=== PATIENT | female | born 1995 | race Caucasian/White ===

== ENCOUNTER → 2023-02-03 | Outpatient (CLI) | payer SELFPAY ==
[~2023-02-03] VITALS: Ht 160 cm; Wt 81.8 kg
[~2023-02-03] MED LIST: LIDOCAINE 1% INJ 10 ML VIAL INJ ONE; LIDOCAINE 1% INJ 10 ML VIAL INJ STA
--- NOTE | 2023-02-04 07:45 | Diagnostic Imaging Report ---
INDICATION: Enlarged right axillary lymph node. Patient presents for ultrasound-guided biopsy. Patient brought to the sonographic suite placed on table in the supine position. Ultrasound imaging of the right axilla was performed to evaluate appropriate entry site. The right axilla was then prepped and draped in usual sterile fashion. Small amount of 1% lidocaine was utilized for local anesthesia. A total of 4 core biopsies were obtained of enlarged lymph node in the right axilla utilizing the 14-gauge Achieve needle. A marker clip was then deployed. Hemostasis was obtained using manual compression. Patient tolerated the procedure well and left the department in stable condition. IMPRESSION: Successful ultrasound guided core biopsy of the enlarged right axillary lymph node. Pathology results are currently pending. Dictated by: Dictated on workstation # [id number]
--- NOTE | 2023-02-06 09:18 | Diagnostic Imaging Report ---
INDICATION: Right breast calcifications. PROCEDURE: The patient presents for stereotactic biopsy. The patient was brought to the stereotactic suite, placed in the chair in a sitting upright position. The right breast was positioned lateral medial. Stereotactic and tomographic imaging of the right breast was then performed. All images were viewed on a dedicated workstation. The calcifications in the upper and outer aspects of the right breast are stereotactically targeted. The lateral right breast was then prepped and draped in the usual sterile fashion. A small amount of 1% lidocaine was utilized for local anesthesia. The 8-gauge vacuum-assisted needle was advanced from a lateral medial approach and placed per stereotactic coordinates. 4 core biopsies were obtained. Specimen radiograph shows several calcifications within sample labeled #4. Four additional core biopsies were obtained with a vacuum-assisted device with multiple calcifications noted within sample labeled #9. The marker clip was then deployed. The needle was removed and hemostasis was obtained. The patient tolerated the procedure well and obtained a postprocedure 2-D CC and lateral medial mammogram on dedicated mammographic equipment. The images demonstrate clip deployment within the outer right breast. IMPRESSION: Successful stereotactic biopsy of the right breast calcifications utilizing the 8-gauge vacuum-assisted device. Pathology results are currently pending. Dictated by: Dictated on workstation # [id number]
== END ==
LOC: RAD 13:00
PROVIDERS: ATTEND Nurse Practitioner Family
DX: R59.9 Enlarged lymph nodes, unspecified (principal); R92.1 Mammographic calcification found on diagnostic imaging of breast
CPT/HCPCS: 19081; 76942; A4648 ×2